=== PATIENT | female | born 1970 | race Caucasian/White ===

== ENCOUNTER → 2017-08-20 | Outpatient (CLI) | payer BC | LOC: M WUC 17:51 | DX: M79.641 Pain in right hand (principal) | CPT/HCPCS: 73130 ==

== ENCOUNTER → 2017-08-20 | Outpatient (CLI) | payer BC | LOC: M WHC 15:38 | DX: Z12.31 Encounter for screening mammogram for malignant neoplasm of breast (principal); R92.8 Other abnormal and inconclusive findings on diagnostic imaging of breast; Z92.0 Personal history of contraception; Z98.890 Other specified postprocedural states | CPT/HCPCS: 77067 ==

== ENCOUNTER → 2018-03-19 | Outpatient (REF) | payer BC | LOC: M LAB REF 19:18 | DX: J02.9 Acute pharyngitis, unspecified (principal) | CPT/HCPCS: 87081 ==

== ENCOUNTER → 2018-07-30 | Outpatient (CLI) | payer BC, OTHER ==
[~2018-07-30] MED LIST: ASPI325T25 PO; AZEL0.05 OU; AZEL0.055; FURO20TA2 PO; HYDR-3713 PO; KLOR1CAP2 PO; LORT5TAB PO; MOTR200T44 PO; PRO AIR INH; QNAS80AE; SING10TA32 PO; VITA-171 PO; VITATAB21 PO; VOLT1GEL15 TD; XANA0.25 PO; XYZA5TAB2 PO; ZOLO100T PO
--- NOTE | 2018-07-30 16:11 | REP ---
THYROID ULTRASOUND: Real-time sonographic evaluation of the thyroid performed. Comparison made with prior study 09/06/2013. Right lobe measures 5.2 x 1.7 x 1.6 cm and left lobe 4.8 x 1.7 x 1.3 cm. There are multiple subcentimeter nodules. The largest on the right measured 9 x 7 x 7 mm in the upper pole and 8 x 4 x 6 mm in the lower pole. These have slightly increased in size since the prior exam. The two largest nodules on the left measure 5 mm in diameter, one superiorly and one inferiorly. These appear essentially unchanged. IMPRESSION: Multiple subcentimeter nodules bilaterally, two of which in the right lobe have only minimally increased in size since prior study of 2013. These nodules do not appear to be suspicious. Electronically Signed by Eliseo Sue MD 07/30/2018 04:16 P
== END ==
LOC: M RAD 15:11
PROVIDERS: ATTEND Physician Assistant Medical
DX: E04.2 Nontoxic multinodular goiter (principal)

== ENCOUNTER → 2018-09-22 | Outpatient (REF) | payer OTHER ==
[~2018-09-22] MED LIST changes: +ASPI-255 PO; -ASPI325T25 PO
== END ==
LOC: M SFHCWAGY 14:58
PROVIDERS: ATTEND Nurse Practitioner Women's Health
DX: Z11.4 Encounter for screening for human immunodeficiency virus [HIV] (principal)

== ENCOUNTER → 2018-09-22 | Outpatient (CLI) | payer BC ==
--- NOTE | 2018-09-22 16:08 | REPMRS ---
Patient History The patient states she had a clinical breast exam in 09/2018. Family history of endometrial cancer under age 50 in maternal aunt. Benign stereotactic core biopsy of the left breast, 2011. Took hormonal contraceptives for 10 years. Digital Woman Screen Mammo: September 22, 2018 - Exam #: [id number] Bilateral CC and MLO view(s) were taken. Technologist: Priscilla Mora, Technologist Prior study comparison: August 20, 2017, digital woman screen mammo performed at [facility]. March 07, 2016, digital woman screen mammo performed at [facility]. March 06, 2015, digital woman screen mammo performed at [facility]. FINDINGS: The breast tissue is heterogeneously dense. This may lower the sensitivity of mammography. There are multiple benign appearing stable nodules in each breast. These are consistent with multiple cysts. They range in size up to 3.8 cm. There is a moderate amount of heterogeneously dense fibroglandular tissue which is fairly symmetric. There is no interval development of dominant mass, architectural distortion, or clustered microcalcification typical of malignancy. There has been no change in the appearance of the mammogram from the prior studies. 3-D tomosynthesis shows no additional findings. Assessment: BI-RADS/ACR category 2 mammogram. Benign Findings. Recommendation Routine screening mammogram of both breasts in 1 year (for women over age 40). This patient's Lifetime Breast Cancer RIsk is estimated at 14.7 %. This mammogram was interpreted with the aid of an FDA-approved computer-aided dectection system. Electronically Signed By: Marlo Rey MD 09/22/18 [id number]
== END ==
LOC: M WHC 15:00
PROVIDERS: ATTEND Nurse Practitioner Women's Health
DX: Z12.31 Encounter for screening mammogram for malignant neoplasm of breast (principal); Z92.0 Personal history of contraception

== ENCOUNTER → 2018-12-24 | Outpatient (REF) | payer OTHER ==
[2018-12-24 14:01] LABS: BASO # 0.1 10^3/uL (0.0-0.2); BASO % 0.9 % (0.0-1.0); EOS # 0.2 10^3/uL (0.0-0.50); EOS % 2.2 % (0.0-3.0); HEMATOCRIT 38.5 % (36.0-47.0); HEMOGLOBIN 11.8 g/dl (12.0-15.5); LYMPH # 1.7 10^3/uL (1.5-4.5); LYMPH % 24.8 % (24.0-44.0); MEAN CORPUSCULAR HEMOGLOBIN 26.1 pg (27.0-33.0); MEAN CORPUSCULAR HGB CONC 30.6 g/dl (32.0-36.5); MEAN CORPUSCULAR VOLUME 85.2 fl (80.0-96.0); MONO # 0.7 10^3/uL (0.0-0.8); MONO % 9.7 % (0.0-5.0); NEUTROPHILS # 4.3 10^3/uL (1.8-7.7); NEUTROPHILS % 62.3 % (36.0-66.0); PLATELET COUNT, AUTOMATED 327 10^3/uL (150-450); RED BLOOD COUNT 4.52 10^6/uL (4.00-5.40); WHITE BLOOD COUNT 6.8 10^3/uL (4.0-10.0)
== END ==
LOC: M LABSMT 13:15
PROVIDERS: ATTEND Allergy & Immunology Allergy
DX: J45.30 Mild persistent asthma, uncomplicated (principal)

== ENCOUNTER → 2020-05-02 | Outpatient (CLI) | payer BC ==
--- NOTE | 2020-05-03 04:53 | REP ---
INDICATION: E04.9 GOITER COMPARISON: 07/30/2018 TECHNIQUE: Sue scale and color evaluation of the thyroid gland using the linear high frequency transducer. FINDINGS: The thyroid gland is minimally enlarged and relatively normal in contour and parenchymal echotexture with the exception of few scattered subcentimeter hypoechoic nodules. Right thyroid lobe measures 5.2 x 1.7 x 1.6 cm with stable 11 x 7 x 9 mm hypoechoic upper pole nodule (previously measuring 9 x 7 x 6 mm), 10 x 5 x 8 mm complex mid/lower pole nodule (previously measuring 8 x 7 x 4 mm) and multiple smaller scattered indeterminate nodules. Isthmus measures 4.9 mm in width. Left thyroid lobe measures 4.8 x 1.7 x 1.3 cm and includes 6 x 4 x 7 mm lower pole mildly complex hypoechoic nodule (previously measuring 5 x 3 x 4 mm), and 7 x 3 x 5 mm hypoechoic mid/lower pole nodule (previously measuring 5 x 4 x 3 mm). IMPRESSION: Few scattered thyroid nodules appear relatively benign/indeterminate and similar to prior examination. <Electronically signed by Gene Rabago > 05/03/20 [id number]
== END ==
LOC: M WHC 15:41
PROVIDERS: ATTEND Physician Assistant Medical
DX: E04.2 Nontoxic multinodular goiter (principal)

== ENCOUNTER → 2020-05-16 | Outpatient (CLI) | payer BC ==
--- NOTE | 2020-05-16 17:38 | REPMRS ---
Patient History The patient states she has not had a clinical breast exam in over a year. Family history of endometrial cancer under age 50 in maternal aunt. Benign stereotactic core biopsy of the left breast, 2011. Took hormonal contraceptives for 10 years. Digital Woman Screen Mammo: May 16, 2020 - Exam #: [id number] Bilateral CC and MLO view(s) were taken. Technologist: Priscilla Mora, Technologist Prior study comparison: September 22, 2018, bilateral digital woman screen mammo performed at [facility]. August 20, 2017, digital woman screen mammo performed at [facility][1]. March 07, 2016, digital woman screen mammo performed at [facility][1]. FINDINGS: There are scattered fibroglandular densities. The Volpara volumetric breast density category is:B. Multiple well-defined nodular opacities are seen bilaterally, most of which have regressed since the prior study. Previous sonography has shown cysts. There is a needle biopsy marker clip again noted on the left. There has been no change in the appearance of the mammogram from the prior studies. There is a mild amount of scattered fibroglandular density which is fairly symmetric. There is no interval development of dominant mass, architectural distortion, or grouped microcalcification suggestive of malignancy. 3-D tomosynthesis shows no additional findings. Assessment: BI-RADS/ACR category 2 mammogram. Benign Findings. Recommendation Routine screening mammogram of both breasts in 1 year (for women over age 40). This patient's [facility] Lifetime Breast Cancer Risk is estimated at 14.3 %. This mammogram was interpreted with the aid of an FDA-approved computer-aided dectection system. Electronically Signed By: Marlo Rey MD 05/16/20 [id number]
== END ==
LOC: M WHC 15:57
PROVIDERS: ATTEND Physician Assistant Medical
DX: Z12.31 Encounter for screening mammogram for malignant neoplasm of breast (principal)

== ENCOUNTER → 2020-07-13 | Outpatient (REF) | payer OTHER | LOC: M LAB REF 13:40 | PROVIDERS: ATTEND Dermatology | DX: L72.0 Epidermal cyst (principal) ==

== ENCOUNTER → 2020-11-06 | Outpatient (CLI) | payer BC, OTHER ==
--- NOTE | 2020-11-06 18:30 | REP ---
INDICATION: STRAIN OF MUSCLE, FASCIA AND TENDON OF LOWER BACK, INIT COMPARISON: 02/27/2010 TECHNIQUE: AP, lateral, bilateral oblique, and coned-down views of the lumbar spine. FINDINGS: Alignment and lordosis maintained. Vertebral bodies are intact. No acute fracture/compression injury or subluxation. No obvious spondylolysis or spondylolisthesis.. Generalized age-related changes are suggested without obvious disc space narrowing through the L4-5 level. L5-S1 level is limited by overlying opacities. IMPRESSION: Essentially age-appropriate examination through the L4-5 level. L5-S1 is incompletely evaluated. <Electronically signed by Gene Rabago > 11/06/20 [id number]
== END ==
LOC: M RAD 18:01
PROVIDERS: ATTEND Physician Assistant
DX: S39.012A Strain of muscle, fascia and tendon of lower back, initial encounter (principal); X58.XXXA Exposure to other specified factors, initial encounter; Y92.9 Unspecified place or not applicable; Y99.9 Unspecified external cause status

== ENCOUNTER → 2020-11-16 | Outpatient (REF) | payer OTHER | LOC: M LAB REF 14:13 | PROVIDERS: ATTEND Dermatology | DX: D23.9 Other benign neoplasm of skin, unspecified (principal) ==

== ENCOUNTER → 2022-01-09 | Outpatient (CLI) | payer BC, OTHER | LOC: M WHC 14:22 | PROVIDERS: ATTEND Advanced Practice Midwife | DX: Z12.31 Encounter for screening mammogram for malignant neoplasm of breast (principal) ==

== ENCOUNTER → 2022-05-05 | Outpatient (CLI) | payer BC, OTHER | LOC: M RAD 10:20 | PROVIDERS: ATTEND Physician Assistant Medical | DX: E04.1 Nontoxic single thyroid nodule (principal) ==

== ENCOUNTER → 2022-10-28 | Outpatient (REF) | payer BC, OTHER ==
[~2022-10-28] MED LIST changes: +MONT-5 PO; -SING10TA32 PO
== END ==
LOC: M LAB REF 18:11
PROVIDERS: ATTEND Surgery
DX: D17.21 Benign lipomatous neoplasm of skin and subcutaneous tissue of right arm (principal)

== ENCOUNTER → 2022-12-08 | Outpatient (CLI) | payer BC, OTHER ==
[~2022-12-08] MED LIST changes: +ASCO100013 PO; +ATOR80TA59 PO; +BACI1TAB PO; +DICL20GE TP; +EZET10TA21 PO; +FLUC150T9 PO; +HYDR-3363 PO; +ISOVUE-370 76% 100ML VIAL As Ordered ONE; +MAGN400T35 PO; +OFLO5DRO OU; +POTA10CA60 PO; +PREN1CHW6 PO; +VALA500T5 PO; +XERE5CRE EX; +XYZASOL2 PO; +[UNRECOGNIZED DRUG - OTHER]
== END ==
LOC: M RAD 15:28
PROVIDERS: ATTEND Surgery Vascular Surgery
DX: I83.893 Varicose veins of bilateral lower extremities with other complications (principal)
CPT/HCPCS: 74174; Q9967

== ENCOUNTER 2022-12-12 08:12 | Day surgery (SDC) | payer BC, OTHER ==
[~2022-12-12] VITALS: Ht 167.6 cm; Wt 103.1 kg
[~2022-12-12 08:12] MED LIST changes: -ISOVUE-370 76% 100ML VIAL As Ordered ONE; +LIDOCAINE 2% 100MG/5ML SDV (FOR ANES.) As Ordered ONE; +NS 1,000 ML IV ONE; +propofoL 200 MG/20 ML VIAL As Ordered ONE
[2022-12-12] MEDS ORDERED: ONDANSETRON 4MG 2ML VIAL As Ordered ONE (09:19)
[2022-12-12 09:34] VITALS: TEMP 97.5
[2022-12-12 10:29] VITALS: BP 132/71; O2SAT 98
== END 2022-12-12 12:15 | disposition home or self-care (01) ==
LOC: M OPP 08:12
PROVIDERS: ATTEND Surgery
DX: Z12.11 Encounter for screening for malignant neoplasm of colon (principal); K64.4 Residual hemorrhoidal skin tags; Z79.01 Long term (current) use of anticoagulants; Z79.02 Long term (current) use of antithrombotics/antiplatelets; Z79.1 Long term (current) use of non-steroidal anti-inflammatories (NSAID); Z79.51 Long term (current) use of inhaled steroids; Z88.0 Allergy status to penicillin; Z88.6 Allergy status to analgesic agent; Z91.030 Bee allergy status; Z91.048 Other nonmedicinal substance allergy status
CPT/HCPCS: 45378; J2405

== ENCOUNTER → 2023-12-03 | Outpatient (REF) | payer OTHER ==
[~2023-12-03] MED LIST changes: -AZEL0.055; +AZEL1SPR4; -LIDOCAINE 2% 100MG/5ML SDV (FOR ANES.) As Ordered ONE; -NS 1,000 ML IV ONE; -POTA10CA60 PO; +POTA10CA70 PO; -propofoL 200 MG/20 ML VIAL As Ordered ONE
[2023-12-03 18:16] LABS: FREE T3 3.3 PG/ML (2.3-4.2); THYROID STIMULATING HORMONE 0.732 uIU/ML (0.55-4.78)
[2023-12-03 18:17] LABS: FREE T4 1.18 NG/DL (0.89-1.76)
== END ==
LOC: M LABWUC 16:28
PROVIDERS: ATTEND Nurse Practitioner Family
DX: L60.8 Other nail disorders (principal)

== ENCOUNTER → 2023-12-03 | Outpatient (REF) | payer OTHER ==
[2023-12-03 17:54] LABS: BASO # 0.1 10^3/uL (0.0-0.2); BASO % 1.1 % (0.0-1.0); EOS # 0.1 10^3/uL (0.0-0.5); EOS % 1.7 % (0.0-3.0); HEMATOCRIT 43.5 % (36.0-47.0); HEMOGLOBIN 14.2 g/dl (12.0-15.5); LYMPH # 2.1 10^3/uL (1.5-5.0); LYMPH % 27.8 % (24.0-44.0); MEAN CORPUSCULAR HGB CONC 32.6 g/dl (32.0-36.5); MONO # 0.7 10^3/uL (0.0-0.8); MONO % 9.5 % (2.0-8.0); NEUTROPHILS # 4.4 10^3/uL (1.5-8.5); NEUTROPHILS % 59.8 % (36.0-66.0); PLATELET COUNT, AUTOMATED 338 10^3/uL (150-450); RED BLOOD COUNT 4.89 10^6/uL (4.00-5.40); WHITE BLOOD COUNT 7.4 10^3/uL (4.0-10.0)
[2023-12-03 18:14] LABS: ALBUMIN 3.6 G/DL (3.2-5.2); ALKALINE PHOSPHATASE 141 U/L (46-116); ALT/SGPT 19 U/L (7.0-40); AST/SGOT 14 U/L (<34); BILIRUBIN,TOTAL 0.6 MG/DL (0.3-1.2); BLOOD UREA NITROGEN 10 MG/DL (9-23); CALCIUM LEVEL 9.6 MG/DL (8.5-10.1); CARBON DIOXIDE LEVEL 32 MMOL/L (20-31); CHLORIDE LEVEL 104 MMOL/L (98-107); CREATININE FOR GFR 0.73 MG/DL (0.55-1.30); GLOMERULAR FILTRATION RATE > 60.0 (>51); GLUCOSE, FASTING 93 MG/DL (60-100); SODIUM LEVEL 142 MMOL/L (136-145); TOTAL PROTEIN 6.7 G/DL (5.7-8.2)
[2023-12-03 18:17] LABS: TOTAL 25(OH) VITAMIN D 59.6 NG/ML (20.0-100.0)
== END ==
LOC: M LABWUC 16:32
PROVIDERS: ATTEND Physician Assistant Medical
DX: R60.1 Generalized edema (principal); F34.1 Dysthymic disorder; E66.01 Morbid (severe) obesity due to excess calories; I87.2 Venous insufficiency (chronic) (peripheral)

== ENCOUNTER → 2023-12-03 | Outpatient (REF) | payer OTHER ==
[2023-12-03 18:13] LABS: ALBUMIN 3.6 G/DL (3.2-5.2); BILIRUBIN,DIRECT 0.1 MG/DL (<0.4); BILIRUBIN,TOTAL 0.6 MG/DL (0.3-1.2); CHOLESTEROL RISK RATIO 3.05 (<5); HDL CHOLESTEROL 68.8 MG/DL (>40); LDL CHOLESTEROL 116.6 MG/DL (<100); NON-HDL-C 141.2 MG/DL; TOTAL PROTEIN 6.7 G/DL (5.7-8.2)
== END ==
LOC: M LABWUC 16:30
PROVIDERS: ATTEND Internal Medicine Cardiovascular Disease
DX: E78.01 Familial hypercholesterolemia (principal); R94.5 Abnormal results of liver function studies

== ENCOUNTER → 2024-03-29 | Outpatient (CLI) | payer BC | LOC: M WHC 14:26 | PROVIDERS: ATTEND Physician Assistant Medical | DX: Z12.31 Encounter for screening mammogram for malignant neoplasm of breast (principal); E04.9 Nontoxic goiter, unspecified ==

== ENCOUNTER → 2025-03-17 | Outpatient (CLI) | payer BC ==
[~2025-03-17] MED LIST changes: -EZET10TA21 PO; +EZET10TA57 PO
== END ==
LOC: M WHC 09:02
PROVIDERS: ATTEND Nurse Practitioner Family
DX: Z12.31 Encounter for screening mammogram for malignant neoplasm of breast (principal); E04.2 Nontoxic multinodular goiter; R92.333 Mammographic heterogeneous density, bilateral breasts

== ENCOUNTER → 2025-04-06 | Outpatient (REF) | payer BC | LOC: M SFHCPLAZ 16:47 | PROVIDERS: ATTEND Nurse Practitioner Family | DX: F41.1 Generalized anxiety disorder (principal) ==

== ENCOUNTER → 2025-06-09 | Outpatient (CLI) | payer BC | LOC: M CARPUL 09:14 | PROVIDERS: ATTEND Nurse Practitioner Family | DX: Q21.12 Patent foramen ovale (principal); I87.2 Venous insufficiency (chronic) (peripheral); Z82.49 Family history of ischemic heart disease and other diseases of the circulatory system ==